=== PATIENT | male | born 1970 | race Caucasian/White ===

== ENCOUNTER 2020-06-07 15:22 | Emergency (ER) | payer OTHER ==
[2020-06-07 16:19] LABS: HEMATOCRIT 34.3 % (39.0-50.0); HEMOGLOBIN 11.4 g/dl (14.0-18.0); IMMATURE GRANULOCYTES 0.5 % (0.0-5.0); MEAN CELL VOLUME 108.2 fL CALC (80.0-100.0); MEAN CORPUSCULAR HGB CONC 33.2 g/dL CAL (32.0-36.0); NEUT# 2.89 thou/uL (1.82-7.42); RED BLOOD COUNT 3.17 mill/uL (4.70-6.10); RED CELL DISTRI WIDTH 15.6 % (11.5-15.5)
[2020-06-07 16:27] LABS: ALBUMIN 4.1 g/dL (3.2-5.0); ALKALINE PHOSPHATASE 71 u/l (38-126); ANION GAP 10 (6-22 (CALC)); BILIRUBIN, TOTAL 1.1 mg/dL (0.0-1.4); BUN 14 mg/dL (9-20); BUN/CREATININE RATIO 12 (12-20 (CALC)); CARBON DIOXIDE 26 mmol/l (22-30); CHLORIDE 107 mmol/l (95-108); CREATININE 1.2 mg/dL (0.7-1.3); GFR > 60 ML/MIN (>=60 (CALC)); GFR FOR AFR.AMER. > 60 ML/MIN (>=60 (CALC)); POTASSIUM 4.2 mmol/l (3.5-5.1); SGOT/AST 36 u/l (17-59); SODIUM 138 mmol/l (137-146)
[2020-06-07 18:17] LABS: URINE BILIRUBIN - DIPSTICK NEGATIVE (NEGATIVE); URINE BLOOD DIPSTICK TRACE-INTACT (NEGATIVE); URINE COLOR YELLOW; URINE GLUCOSE - DIPSTICK NEGATIVE (NEGATIVE); URINE KETONE TRACE mg/dL (NEGATIVE); URINE LEUK ESTERASE NEGATIVE (NEGATIVE); URINE NITRITE - DIPSTICK NEGATIVE (Negative); URINE PH 6.5 (4.5-8.0); URINE PROTEIN - DIPSTICK NEGATIVE (NEG-TRACE); URINE SPECIFIC GRAVITY 1.015
[2020-06-07 18:37] VITALS: BP 133/78
== END 2020-06-07 18:38 | DRG 179 ==
LOC: ED 15:22
PROVIDERS: Student in an Organized Health Care Education/Training Program
DX: U07.1 COVID-19 (principal); E11.9 Type 2 diabetes mellitus without complications; I10 Essential (primary) hypertension; S09.90XA Unspecified injury of head, initial encounter; W19.XXXA Unspecified fall, initial encounter; Y92.149 Unspecified place in prison as the place of occurrence of the external cause; I95.9 Hypotension, unspecified

== ENCOUNTER 2020-06-07 20:49 | Emergency (ER) | payer OTHER ==
[~2020-06-07] VITALS: Ht 195.6 cm; Wt 127.3 kg
[2020-06-07 21:42] LABS: HEMATOCRIT 33.1 % (39.0-50.0); IMMATURE GRANULOCYTES 0.3 % (0.0-5.0); MEAN CELL VOLUME 109.2 fL CALC (80.0-100.0); MEAN CORPUSCULAR HGB 36.3 pG CALC (26.0-32.0); MEAN CORPUSCULAR HGB CONC 33.2 g/dL CAL (32.0-36.0); NEUT# 2.4 thou/uL (1.82-7.42); RED BLOOD COUNT 3.03 mill/uL (4.70-6.10); RED CELL DISTRI WIDTH 15.9 % (11.5-15.5)
[2020-06-07 21:52] LABS: ALBUMIN 3.6 g/dL (3.2-5.0); ALKALINE PHOSPHATASE 66 u/l (38-126); ANION GAP 9 (6-22 (CALC)); BILIRUBIN, TOTAL 0.8 mg/dL (0.0-1.4); BUN 15 mg/dL (9-20); BUN/CREATININE RATIO 14 (12-20 (CALC)); CARBON DIOXIDE 23 mmol/l (22-30); CHLORIDE 111 mmol/l (95-108); CREATININE 1.1 mg/dL (0.7-1.3); GFR > 60 ML/MIN (>=60 (CALC)); GFR FOR AFR.AMER. > 60 ML/MIN (>=60 (CALC)); POTASSIUM 3.8 mmol/l (3.5-5.1); SGOT/AST 38 u/l (17-59); SODIUM 139 mmol/l (137-146)
[2020-06-07 22:04] LABS: MYOGLOBIN 84 ng/mL (0 - 121)
[2020-06-07 22:21] LABS: URINE BILIRUBIN - DIPSTICK NEGATIVE (NEGATIVE); URINE BLOOD DIPSTICK TRACE-INTACT (NEGATIVE); URINE COLOR YELLOW; URINE GLUCOSE - DIPSTICK NEGATIVE (NEGATIVE); URINE KETONE 15 mg/dL (NEGATIVE); URINE LEUK ESTERASE NEGATIVE (NEGATIVE); URINE NITRITE - DIPSTICK NEGATIVE (Negative); URINE PROTEIN - DIPSTICK NEGATIVE (NEG-TRACE); URINE SPECIFIC GRAVITY >=1.030
[2020-06-07 22:25] VITALS: BP 130/69
== END 2020-06-07 22:40 | DRG 179 ==
LOC: ED 20:49
PROVIDERS: Family Medicine
DX: U07.1 COVID-19 (principal); I95.9 Hypotension, unspecified; E11.9 Type 2 diabetes mellitus without complications; I10 Essential (primary) hypertension

== ENCOUNTER 2020-06-11 20:00 | Inpatient (IN) | payer OTHER ==
[~2020-06-11] VITALS: Ht 195.6 cm; Wt 122.5 kg
--- NOTE | 2020-06-11 20:02 | NUR ---
PATIENT ARRIVES VIA EMS STRETCHER. PATIENT ABLE TO STAND, TURN, AND SIT ONTO STRETCHER WITHOUT ASSIST. TRIAGE COMPLETED AT BEDSIDE. EMS STATES CALL WAS FOR CHEST PAIN X 2 DAYS AND LOW BLOOD PRESSURE. PATIENT DENIES ANY COMPLAINTS AT PRESENT. PATIENT IN SHACKLES AND GUARD X2 PRESENT.
[2020-06-11] MEDS ORDERED: METFORMIN500 M2 PO (20:27)
--- NOTE | 2020-06-11 20:28 | NUR ---
ATTEMPTED TO RECONCILE MEDS. PATIENT CAN RECALL SOME NAMES BUT NO DOSES. CALLED THE [facility] AND SPOKE WITH NURSE LIDIA, STATES PATIENT HAS HIS OWN MEDS AND DOES NOT RECEIVE THEM FROM MEDICAL. STATES HER LAST LIST SHE HAS IS MORE THAN SIX MONTHS OLD.
[2020-06-11 20:41] LABS: HEMATOCRIT 34.6 % (39.0-50.0); HEMOGLOBIN 11.6 g/dl (14.0-18.0); IMMATURE GRANULOCYTES 0.2 % (0.0-5.0); MEAN CELL VOLUME 105.5 fL CALC (80.0-100.0); MEAN CORPUSCULAR HGB 35.4 pG CALC (26.0-32.0); MEAN CORPUSCULAR HGB CONC 33.5 g/dL CAL (32.0-36.0); NEUT# 2.45 thou/uL (1.82-7.42); RED BLOOD COUNT 3.28 mill/uL (4.70-6.10); RED CELL DISTRI WIDTH 15.2 % (11.5-15.5)
--- NOTE | 2020-06-11 21:00 | NUR ---
RESTING QUIETLY. NAD.
[2020-06-11 21:07] LABS: ALBUMIN 4.2 g/dL (3.2-5.0); ALKALINE PHOSPHATASE 80 u/l (38-126); AMYLASE 65 u/l (30-110); ANION GAP 11 (6-22 (CALC)); BUN 18 mg/dL (9-20); BUN/CREATININE RATIO 22 (12-20 (CALC)); C-REACTIVE PROTEIN 4.9 mg/dL (0-0.9); CARBON DIOXIDE 24 mmol/l (22-30); CHLORIDE 105 mmol/l (95-108); CPK 251 u/l (52-200); CREATININE 0.8 mg/dL (0.7-1.3); ETHYL ALCOHOL 0 mg/dl (0-30); GFR > 60 ML/MIN (>=60 (CALC)); GFR FOR AFR.AMER. > 60 ML/MIN (>=60 (CALC)); LIPASE 53 u/l (23-300); MAGNESIUM 2.3 mg/dL (1.6-2.3); POTASSIUM 3.6 mmol/l (3.5-5.1); SGOT/AST 45 u/l (17-59); SODIUM 137 mmol/l (137-146)
[2020-06-11 21:08] LABS: BILIRUBIN, TOTAL 1.3 mg/dL (0.0-1.4); TOTAL PROTEIN 8.5 g/dL (6.3-8.2)
[2020-06-11 21:13] LABS: D-DIMER 7.34 mg/L (0.19-0.60)
[2020-06-11 21:14] LABS: ACT PARTIAL THROMBO TIME 24.8 SECONDS (20.0-32.5); INTERNATIONAL NORMALIZED RATIO 1.1 RATIO (0.7-1.3); PROTHROMBIN TIME 10.6 SECONDS (9.0-12.5)
--- NOTE | 2020-06-11 22:00 | NUR ---
NO CHANGE IN EXAM. VSS.
--- NOTE | 2020-06-11 22:45 | NUR ---
Admission Note Report Given to: WILBUR WATKINS Transported by: Wheelchair X Stretcher Transported with: X Nurse Transporter X Patent IV O2 X Operator Specialist Communications Location: ICU X [facility]
--- NOTE | 2020-06-11 23:00 | NUR ---
TO FLOOR BY STRETCHER. THOMAS X 2 ACCOMPANIED. PT IN SHACKLES.
[2020-06-11 23:18] VITALS: BP 119/82
--- NOTE | 2020-06-11 23:18 | NUR ---
PT ARRIVED FROM ER VIA STRETCHER ACCOMPAINED BY ER STAFF. PT ALERT AND ORIENTED. NO APPARENT DISTRESS NOTED. VSS. PT REQUEST SHOWER SOON ENTERING ROOM. SUPPLYS PROVIDED AND PT INTO SHOWER. X2 GUARDS AT BEDSIDE. IV SITE APPEARS HEALTHY, PROTECTIVE BARRIER APPLIED. OLIVE PACKER REMOVED WILL REPLACE ONCE OUT OF SHOWER. PT AMBULATED WITH ASSIST TO SHOWER AT THIS TIME. PT AND GUARDS INSTRUCTED TO CALL WHEN PT OUT OF SHOWER.
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
[2020-06-12 04:10] VITALS: BP 135/75
--- NOTE | 2020-06-12 04:10 | NUR ---
PT RESTING IN BED. NO APPARENT DISTRESS NOTED. X2 GUARDS AT BEDSIDE, PT SHACKLED TO BED BY LLE. FORM SETTER/DRIVER IN PLACE. IVF INFUSING WITHOUT DIFFICULTY. VSS. CALL LIGHT WITHIN REACH. WILL CONTINUE TO MONITOR.
[2020-06-12 05:22] LABS: HEMATOCRIT 34.8 % (39.0-50.0); HEMOGLOBIN 11.5 g/dl (14.0-18.0); IMMATURE GRANULOCYTES 0.3 % (0.0-5.0); MEAN CELL VOLUME 107.1 fL CALC (80.0-100.0); MEAN CORPUSCULAR HGB 35.4 pG CALC (26.0-32.0); NEUT# 2.53 thou/uL (1.82-7.42); RED BLOOD COUNT 3.25 mill/uL (4.70-6.10); RED CELL DISTRI WIDTH 15.3 % (11.5-15.5)
[2020-06-12 05:58] LABS: ALKALINE PHOSPHATASE 75 u/l (38-126); BILIRUBIN, TOTAL 1.2 mg/dL (0.0-1.4); BUN 15 mg/dL (9-20); BUN/CREATININE RATIO 20 (12-20 (CALC)); CARBON DIOXIDE 22 mmol/l (22-30); CHLORIDE 108 mmol/l (95-108); CREATININE 0.8 mg/dL (0.7-1.3); GFR > 60 ML/MIN (>=60 (CALC)); GFR FOR AFR.AMER. > 60 ML/MIN (>=60 (CALC)); SGOT/AST 52 u/l (17-59); SODIUM 137 mmol/l (137-146); TOTAL PROTEIN 7.7 g/dL (6.3-8.2)
[2020-06-12 06:02] LABS: ANION GAP 12 (6-22 (CALC)); POTASSIUM 4.8 mmol/l (3.5-5.1)
[2020-06-12 08:00] VITALS: BP 123/77
--- NOTE | 2020-06-12 08:00 | NUR ---
ASSESSMENT IS COMPLETED: IV SITE IS FREE FROM REDNESS OR EDEMA. HR IS REG,PULSES ARE STRONG X4, ABD IS SOFT WITH ACTIVE BS. BREATH SOUNDS ARE CLEAR, BILATERALLY. TELE MONITOR IN PLACE. 2 GUARDS PRESENT IN THE ROOM.
--- NOTE | 2020-06-12 10:33 | NUR ---
SPOKE WITH NURSE MELISSA RE: MED LIST GIVEN OVER THE PHONE.
[2020-06-12] MEDS ORDERED: LEVOTHYROXIN125 MCG PO (10:43)
[2020-06-12] MEDS ORDERED: METFORMIN HCL1000 MG PO (10:43)
[2020-06-12] MEDS ORDERED: POT CHLORIDE10 ME5 PO (10:43)
[2020-06-12] MEDS ORDERED: LASIX 80 MG TAB80 MG PO (10:44)
[2020-06-12] MEDS ORDERED: XOPENEX HF45 MCG/ACT PO (10:45)
[2020-06-12] MEDS ORDERED: ASPIRIN ADULT L81 M2 PO (10:47)
[2020-06-12] MEDS ORDERED: KEFLEX500 M1 PO (10:48)
[2020-06-12] MEDS ORDERED: DOXYCYCL HYC100 MG PO (10:48)
[2020-06-12] MEDS ORDERED: TRILEPTAL300 M1 PO (10:49)
[2020-06-12 11:12] VITALS: BP 117/79
--- NOTE | 2020-06-12 11:18 | NUR ---
ATTEMPTED TO CALL FOR THE COVID RESULT AND MEDICATION NO ANSWER.
--- NOTE | 2020-06-12 12:45 | NUR ---
PT IS RELAXING IN BED 2 GUARDS IN THE ROOM. IV SITE IS FREE FROM REDNESS OR EDEMA.
[2020-06-12 15:40] VITALS: BP 116/77
--- NOTE | 2020-06-12 16:30 | NUR ---
PT IS RELAXING IN BED WITH NO DISTRESS NOTED. IV SITE IS FREE FROM REDNESS OR EDEAM.
--- NOTE | 2020-06-12 17:30 | NUR ---
HELD THE GLUCOPHAGE DUE TO HAVING A CTA WITH IV CONTRAST.
--- NOTE | 2020-06-12 19:02 | NUR ---
REPORT FROM CYNDI BOWLES. PT ALERT AND ORIENTED. NO APPARENT DISTRESS NOTED. VSS. X2 GUARDS AT BEDSIDE. SHACKLED TO BED BY LLE. IV SITE APPEARS HEALTHY. INVESTMENT OFFICER IN PLACE. PT DENIES ANY PAIN OR SOB. DISCUSSED POC. PT VERBALIZED UNDERSTANDING. CALL LIGHT WITHIN REACH. WILL CONTINUE TO MONITOR.
[2020-06-12 19:10] VITALS: BP 140/82
--- NOTE | 2020-06-12 22:58 | NUR ---
PT REQUESTS FROZEN DINNER MEAL, PT STATES HE DID NOT EAT HIS DINNER THAT WAS PROVIDED EARLIER. PROVIDED AT THIS TIME. NO APPARENT DISTRESS NOTED. CALL LIGHT WITHIN REACH. WILL CONTINUE TO MONITOR.
[2020-06-12 23:47] VITALS: BP 124/85
--- NOTE | 2020-06-13 01:03 | NUR ---
PT RESTING IN BED. NO APPARENT DISTRESS NOTED. X2 GUARDS REMAIN AT BEDSIDE. PT SHACKLED BY LLE. SNACK PROVIDED UPON REQUEST. CALL LIGHT WITHIN REACH. WILL CONTINUE TO MONITOR.
[2020-06-13 04:16] VITALS: BP 140/82
--- NOTE | 2020-06-13 05:43 | NUR ---
PT RESTING IN BED WITH EYES CLOSED. NO APPARENT DISTRESS NOTED. CALL LIGHT WITHIN REACH. WILL CONTINUE TO MONITOR.
--- NOTE | 2020-06-13 07:56 | NUR ---
PRELIMINARY BLOOD CULTURE RESULTS CALLED TO . GRAM (+) AILYN. NO NEW ORDERS.
[2020-06-13] MEDS ORDERED: NEURONTIN100 MG PO (08:59)
[2020-06-13] MEDS ORDERED: ZITHROMAX250 MG PO (08:59)
[2020-06-13 09:15] VITALS: BP 108/71
--- NOTE | 2020-06-13 09:15 | NUR ---
PT SITTING IN BED. A&O X3. NO DISTRESS NOTED. X2 GUARDS AT BEDSIDE. PT DENIES ANY SOB AT THIS TIME. PT CURRENTLY ON RA. NO OTHER NEEDS AT THIS TIME. ASSESSMENT COMPLETED. DISCUSSED POC. ISOLATION PRECAUTIONS IN PLACE. CALL LIGHT IN REACH. CONTINUE TO MONITOR.
[2020-06-13 09:56] LABS: HEMATOCRIT 32.6 % (39.0-50.0); HEMOGLOBIN 10.7 g/dl (14.0-18.0); IMMATURE GRANULOCYTES 0.9 % (0.0-5.0); MEAN CELL VOLUME 105.8 fL CALC (80.0-100.0); MEAN CORPUSCULAR HGB 34.7 pG CALC (26.0-32.0); MEAN CORPUSCULAR HGB CONC 32.8 g/dL CAL (32.0-36.0); NEUT# 2.35 thou/uL (1.82-7.42); RED BLOOD COUNT 3.08 mill/uL (4.70-6.10); RED CELL DISTRI WIDTH 15.2 % (11.5-15.5)
[2020-06-13 10:19] LABS: ALBUMIN 3.7 g/dL (3.2-5.0); ALKALINE PHOSPHATASE 64 u/l (38-126); ANION GAP 12 (6-22 (CALC)); BILIRUBIN, TOTAL 0.8 mg/dL (0.0-1.4); BUN 11 mg/dL (9-20); BUN/CREATININE RATIO 12 (12-20 (CALC)); CARBON DIOXIDE 25 mmol/l (22-30); CHLORIDE 107 mmol/l (95-108); CREATININE 0.9 mg/dL (0.7-1.3); GFR > 60 ML/MIN (>=60 (CALC)); GFR FOR AFR.AMER. > 60 ML/MIN (>=60 (CALC)); SGOT/AST 54 u/l (17-59); SODIUM 141 mmol/l (137-146); TOTAL PROTEIN 7.1 g/dL (6.3-8.2)
[2020-06-13 10:25] LABS: POTASSIUM 3.4 mmol/l (3.5-5.1)
[2020-06-13 10:40] VITALS: BP 115/78
--- NOTE | 2020-06-13 13:13 | NUR ---
D/C INSTRUCTIONS GIVEN TO PT. IV INTACT UPON REMOVAL.
--- NOTE | 2020-06-13 13:42 | NUR ---
Discharge instructions given. Patient verbalizes understanding of same. Discharged in stable condition via wheelchair to [facility] accompanied by advertising writer and 2 guards. All belongings sent with pt.
--- NOTE | 2020-06-13 14:02 | NUR ---
REPORT GIVEN TO SHELDON AT [facility]
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
== END 2020-06-13 13:43 | DRG 177 ==
LOC: ED 20:00 → ED-I 22:15 → ED 22:30 → MS2 22:31 → ED-I 22:31 → MS2 22:54
PROVIDERS: ADMIT Internal Medicine; ATTEND Internal Medicine
DX: U07.1 COVID-19 (principal); J12.89 Other viral pneumonia; I10 Essential (primary) hypertension; E11.40 Type 2 diabetes mellitus with diabetic neuropathy, unspecified; E03.9 Hypothyroidism, unspecified; I95.89 Other hypotension; J45.909 Unspecified asthma, uncomplicated; E66.9 Obesity, unspecified; Z68.32 Body mass index [BMI] 32.0-32.9, adult
CPT/HCPCS: G0378; J1650; Q9967

== ENCOUNTER 2020-09-15 16:50 | Emergency (ER) | payer OTHER ==
[~2020-09-15] VITALS: Ht 195.6 cm; Wt 118.2 kg
[~2020-09-15 16:50] MED LIST: ASPIRIN ADULT L81 M2 PO; DOXYCYCL HYC100 MG PO; KEFLEX500 M1 PO; LASIX 80 MG TAB80 MG PO; LEVOTHYROXIN125 MCG PO; METFORMIN HCL1000 MG PO; METFORMIN500 M2 PO; NEURONTIN100 MG PO; POT CHLORIDE10 ME5 PO; TRILEPTAL300 M1 PO; XOPENEX HF45 MCG/ACT PO; ZITHROMAX250 MG PO
[2020-09-15 17:57] LABS: HEMATOCRIT 33.1 % (39.0-50.0); HEMOGLOBIN 11.1 g/dl (14.0-18.0); IMMATURE GRANULOCYTES 0.2 % (0.0-5.0); MEAN CELL VOLUME 108.5 fL CALC (80.0-100.0); MEAN CORPUSCULAR HGB 36.4 pG CALC (26.0-32.0); MEAN CORPUSCULAR HGB CONC 33.5 g/dL CAL (32.0-36.0); NEUT# 2.27 thou/uL (1.82-7.42); RED BLOOD COUNT 3.05 mill/uL (4.70-6.10); RED CELL DISTRI WIDTH 16.1 % (11.5-15.5)
[2020-09-15 18:13] LABS: ALBUMIN 4.3 g/dL (3.2-5.0); ALKALINE PHOSPHATASE 61 u/l (38-126); ANION GAP 13 (6-22 (CALC)); BUN 15 mg/dL (9-20); BUN/CREATININE RATIO 16 (12-20 (CALC)); CARBON DIOXIDE 23 mmol/l (22-30); CHLORIDE 109 mmol/l (95-108); CREATININE 0.9 mg/dL (0.7-1.3); GFR > 60 ML/MIN (>=60 (CALC)); GFR FOR AFR.AMER. > 60 ML/MIN (>=60 (CALC)); LIPASE 49 u/l (23-300); SGOT/AST 20 u/l (17-59); SODIUM 141 mmol/l (137-146); TOTAL PROTEIN 7.8 g/dL (6.3-8.2)
[2020-09-15 18:17] LABS: BILIRUBIN, TOTAL 1.6 mg/dL (0.0-1.4)
[2020-09-15] MEDS ORDERED: MIRALAX17 GM PO (21:06)
[2020-09-15 21:20] VITALS: BP 124/75
== END 2020-09-15 21:20 | DRG 74 ==
LOC: ED 16:50
PROVIDERS: Family Medicine
DX: E11.40 Type 2 diabetes mellitus with diabetic neuropathy, unspecified (principal); K59.00 Constipation, unspecified; I10 Essential (primary) hypertension; Z86.19 Personal history of other infectious and parasitic diseases; Z79.84 Long term (current) use of oral hypoglycemic drugs
CPT/HCPCS: Q9967